=== PATIENT | male | born 1980 ===

== ENCOUNTER 2019-01-11 09:59 | Day surgery (SDC) | payer OTHER ==
[~2019-01-11] VITALS: Ht 172.7 cm; Wt 92.8 kg
[~2019-01-11 09:59] MED LIST: CEFAZOLIN IV ONE; DEXTROSE IV ONE; NAPR-56 PO; famotidine 20mg tablet PO ONE; ringers solution, lacted 1,000 ML IV SCH; vancomycin inj 1,500 MG in normal saline 300ml IV soln IV ONE
[2019-01-11 10:10] VITALS: BP 151/84
[2019-01-11] MEDS ORDERED: sevoflurane 250ml liquid IH ONE (14:48)
[2019-01-11] MEDS ORDERED: fentaNYL/PF 50MCG/1 ML 2ML syringe ONE (14:51)
[2019-01-11] MEDS ORDERED: midazolam 2 mg/2 ml injection ONE (14:51)
[2019-01-11] MEDS ORDERED: LIDOcaine 2% (20mg/ml) 5ml vial ONE (14:52)
[2019-01-11] MEDS ORDERED: propofol inj 20 ML IV ONE (14:52)
[2019-01-11] MEDS ORDERED: ondansetron/PF 4mg/2ml inj ONE (15:03)
[2019-01-11] MEDS ORDERED: ketorolac trometh. 30mg/ml inj. ONE (15:03)
[2019-01-11] MEDS ORDERED: dexamethasone sod phosphate 4mg/ml inj. ONE (15:03)
[2019-01-11] MEDS ORDERED: BUPIVAcaine/PF 7.5mg/ml (0.75%) 10ml vial IJ ONE (15:16)
[2019-01-11] MEDS ORDERED: ringers solution, lacted 1,000 ML IV SCH (15:27)
[2019-01-11] MEDS ORDERED: ondansetron/PF 4mg/2ml inj IV PRN (15:30)
[2019-01-11] MEDS ORDERED: proCHLORperazine 10 MG/2 ml inj IV PRN (15:30)
[2019-01-11] MEDS ORDERED: morphine 4 MG/ML inj SYRINge IV PRN ×2 (15:30)
[2019-01-11] MEDS ORDERED: meperidine/PF 25mg/ml syringe IV PRN ×3 (15:30)
[2019-01-11 16:30] VITALS: BP 111/71
--- NOTE | 2019-01-11 16:30 | NUR ---
Received from OR via BED , accompanied by Anesthesiologist DR DOTY and report given by Anesthesiolgist. PATIENT WAKING UP, DENIES PAIN, V/S WNL, NEUROVASCULAR CHECKS INTACT, 20G PIV LUE , SPLINT DRESSING TO RIGHT WRIST CDI , SCD ON. GUARDS AT BEDSIDE
[2019-01-11 16:40] VITALS: BP 116/75
[2019-01-11 16:50] VITALS: BP 116/76
[2019-01-11 17:00] VITALS: BP 112/74
[2019-01-11 17:10] VITALS: BP 117/64
--- NOTE | 2019-01-11 17:10 | NUR ---
PATIENT A&OX4, DENIES PAIN, V/S WNL, NEUROVASCULAR CHECKS INTACT, 20G PIV D/C WITH NO COMPLICATIONS OBSERVED , SPLINT DRESSING TO RIGHT WRIST THUMB CDI , SCD OFF. I HAVE REVIEWED D/C INSTRUCTIONS WITH PATIENT AND GUARDS AND THEY HAVE VERBALIZED UNDERSTANDING. PATIENT D/C TO [facility] WITH ALL BELONGINGS AND GUARDS GAVE TRANSPORT HOME.
== END 2019-01-11 17:10 ==
LOC: PAS 09:59 → EEVIPCON 13:45 → PAS 17:10
PROVIDERS: ATTEND Orthopaedic Surgery
DX: S62.521A Displaced fracture of distal phalanx of right thumb, initial encounter for closed fracture (principal); X58.XXXA Exposure to other specified factors, initial encounter; Y93.89 Activity, other specified; Y92.89 Other specified places as the place of occurrence of the external cause; Y99.8 Other external cause status; Z87.891 Personal history of nicotine dependence; Z86.19 Personal history of other infectious and parasitic diseases; Z79.899 Other long term (current) drug therapy
CPT/HCPCS: 26746; C1713; J1100; J1885; J2001; J2250; J2405; J2704; J3010; J3370; J3490; J7120; A4215; A4618; A6449; A7000